=== PATIENT | female | born 1955 | race Caucasian/White ===

== ENCOUNTER 2023-02-09 12:40 | Outpatient (OUT) | payer BC, MEDICARE, SELFPAY ==
--- NOTE | 2023-02-09 12:51 | MM_ITS ---
Patient: ASHWINI VALLEJO Exam Date: 02/09/2023 : 1955 Gender:F Ordering : Non-Staff Physician Admission #: [id number] Family : Order #: [id number] CLICK HERE TO VIEW EXAM RADIOLOGY REPORT PROCEDURE: MM TOMOSYNTHESIS SCREENING BI COMPARISON: MG MAMM SCREEN 3D CLARY CAD, 02/05/2022. MG MAMM CLARY SCRN W CAD DIG, 03/27/2016. MG MAMM CLARY SCRN W CAD DIG, 02/12/2015. MG MAMM CLARY SCRN W CAD DIG, 09/16/2010. INDICATIONS: Screening Calculator Name NCI Breast Cancer Risk Assessment Tool 5 Year Breast Cancer Risk 1.20% Lifetime Breast Cancer Risk 4.00% Personal Breast Cancer No Personal Ovarian Cancer No Treatments None Family Cancers Aunt-maternal with breast cancer at age ~35. LOCATION: [facility] BREAST COMPOSITION: Scattered areas fibroglandular density. FINDINGS: DIAGNOSTIC CATEGORY 2--BENIGN FINDING: RIGHT BREAST: No significant suspicious finding. Scattered benign-appearing calcifications are present. No significant change has occurred. LEFT BREAST: No significant suspicious finding. Scattered benign-appearing calcifications are present. No significant change has occurred. RECOMMENDATIONS: ROUTINE MAMMOGRAM AND CLINICAL EVALUATION IN 12 MONTHS. PLEASE NOTE: A NORMAL MAMMOGRAM DOES NOT EXCLUDE THE POSSIBILITY OF BREAST CANCER. A CLINICALLY SUSPICIOUS PALPABLE LUMP SHOULD BE BIOPSIED. Dictated by: Graham Nelson M.D. on 02/09/2023 at 15:39 Approved by: Graham Nelson M.D. on 02/09/2023 at 15:41
== END 2023-02-09 12:41 | disposition home or self-care (01) ==
LOC: MAMMO 12:44
DX: Z12.31 Encounter for screening mammogram for malignant neoplasm of breast (principal); Z80.3 Family history of malignant neoplasm of breast
CPT/HCPCS: 77063; 77067